=== PATIENT | female | born 1935 | race Caucasian/White ===

== ENCOUNTER → 2016-06-29 | Outpatient (CLI) | payer OTHER, MEDICARE | LOC: BRMIMAGING 10:54 | DX: Z12.31 Encounter for screening mammogram for malignant neoplasm of breast (principal) | CPT/HCPCS: G0202 ==

== ENCOUNTER → 2017-07-10 | Outpatient (CLI) | payer OTHER, MEDICARE | LOC: FIMAGING 13:05 | PROVIDERS: ATTEND Internal Medicine Pulmonary Disease | DX: J98.6 Disorders of diaphragm (principal); R94.2 Abnormal results of pulmonary function studies; J45.909 Unspecified asthma, uncomplicated ==

== ENCOUNTER → 2017-07-12 | Outpatient (CLI) | payer OTHER, MEDICARE | LOC: BRMIMAGING 13:03 | DX: Z12.31 Encounter for screening mammogram for malignant neoplasm of breast (principal) ==

== ENCOUNTER → 2017-08-15 | Outpatient (CLI) | payer OTHER, MEDICARE | LOC: BRMIMAGING 09:13 | PROVIDERS: ATTEND Family Medicine | DX: R92.8 Other abnormal and inconclusive findings on diagnostic imaging of breast (principal) | CPT/HCPCS: 76641-PO ==

== ENCOUNTER 2017-12-12 09:22 | Inpatient (IN) | payer OTHER, MEDICARE ==
[2017-12-12] MEDS ORDERED: ACETAMINOPHEN 500 MG TAB PO ONE (09:42)
[2017-12-12] MEDS ORDERED: GABAPENTIN 300 MG CAP PO ONE (09:42)
[2017-12-12] MEDS ORDERED: morphINE PF 0.2 MG in SYRINGE INTRATHECAL 1 SYR IT ONE (09:42)
[2017-12-12] MEDS ORDERED: ceFAZolin 2 GM/DEXTROSE 100 ML IV ONE (09:42)
[2017-12-12] MEDS ORDERED: LIDOCAINE 1% 2 ML INJ ID PRN (09:44)
[2017-12-12] MEDS ORDERED: LR 1,000 ML IV ONE (09:44)
--- NOTE | 2017-12-12 11:59 | PDANEPAE ---
ANE History of Present Illness Lumbar stenosis ANE Past Medical History - Cardiovascular History Hx Hypertension: Yes Hx Arrhythmias: No Hx Chest Pain: No Hx Coronary Artery / Peripheral Vascular Disease: Yes Hx CHF / Valvular Disease: Yes Hx Palpitations: Yes Cardiovascular History Comment: RUNS RAPID HEART RATE - Pulmonary History Hx COPD: No Hx Asthma/Reactive Airway Disease: Yes Hx Recent Upper Respiratory Infection: No Hx Oxygen in Use at Home: No Hx Sleep Apnea: No Sleep Apnea Screening Result - Last Documented: Negative Pulmonary History Comment: VIRUS 10/18/17 PLACED ON 2 ROUNDS OF ANTIBIOTICS AND NEBULIZER. COUGH IS SLOWLY RESOLVING 11/14/17. PULM HTN, HYPOXEMIA. EPISODES OF SOB. W/ENVIRONMENTAL ALLERGIES/IRRITANTS - Neurologic History Hx Cerebrovascular Accident: No Hx Seizures: No Hx Dementia: No Neurologic History Comment: "EYE" MIGRAINES RARE - Endocrine History Hx Diabetes: No Endocrine History Comment: PARTIAL THYROIDECTOMY - Renal History Hx Renal Disorders: No Renal History Comment: NOC FREQUENCY - Liver History Hx Hepatic Disorders: No Hepatic History Comment: CHOLECYSTECTOMY - Neurological & Psychiatric Hx Hx Neurological and Psychiatric Disorders: No - Cancer History Hx Cancer: Yes Cancer History Comment: SKIN CA REMOVED ARMS - Congenital Disorder History Hx Congenital Disorders: No - GI History Hx Gastrointestinal Disorders: Yes Gastrointestinal History Comment: INDIGESTION, BELCHING - Other Health History Other Health History: ECZEMA - Chronic Pain History Chronic Pain: Yes (LOW BACK & LEGS) - Surgical History Prior Surgeries: TONSILLECTOMY. PARTIAL THYROIDECTOMY. CHOLECYSTECTOMY ANE Review of Systems Review of Systems: - Exercise capacity METS (RN): 3 METS ANE Patient History - Allergies Allergies/Adverse Reactions: codeine Allergy (Verified 09/22/17 10:24) Vomiting - Home Medications Home medications: home medication list seen and reviewed Home Medications: Albuterol [Proventil Inhaler HFA (*)] 1 - 2 puffs IH DAILY PRN 09/22/17 [Last Taken 12/11/17] Albuterol [Proventil Neb] 3 ml IH QID PRN 09/22/17 [Last Taken 12/11/17 19:30] Aspirin [Aspirin 325 mg (*)] 325 mg PO DAILY PRN 09/22/17 [Last Taken 11/28/17] Losartan/Hydrochlorothiazide [Losartan-Hctz 100-25 mg Tab] 1 each PO DAILY 09/22 [Last Taken 12/11/17 06:30] Spironolactone [Aldactone 25 MG (*)] 12.5 mg PO DAILY 09/22/17 [Last Taken 12/11 06:30] Thyroid [[place] Thyroid 60 MG (*)] 120 mg PO DAILY 09/22/17 [Last Taken 06:30] Montelukast Sodium [Singulair 10 mg (*)] 10 mg PO DAILY 11/07/17 [Last Taken 22:00] Ranitidine HCl [Zantac 75] 75 mg PO DAILY 11/07/17 [Last Taken 11/21/17] - NPO status NPO Since - Liquids (Date): 12/12/17 NPO Since - Liquids (Time): 08:30 NPO Since - Solids (Date): 12/11/17 NPO Since - Solids (Time): 18:00 - Anes Hx Anes Hx: no prior problems - Smoking Hx Smoking Status: Never smoked - Family Anes Hx Family Hx Anesthesia Complications: NEG ANE Labs/Vital Signs - Vital Signs Blood Pressure: 179/88 Heart Rate: 112 Respiratory Rate: 16 O2 Sat (%): 93 Height: 160.02 cm Weight: 63.503 kg ANE Physical Exam - Airway Neck exam: FROM Mallampati Score: Class 2 Mouth exam: normal dental/mouth exam - Pulmonary Pulmonary: no respiratory distress - Cardiovascular Cardiovascular: regular rate and rhythym - ASA Status ASA Status: III ANE Anesthesia Plan Anesthesia Plan: general endotracheal anesthesia
--- NOTE | 2017-12-12 12:02 | PDHPUP ---
History & Physical Update H&P update statement: This history and physical update is based on an assessment of the patient which was completed after admission or registration (within 24 hours), but prior to the surgery/procedure. H&P update: H&P reviewed & patient examined, no change in patient's condition since H&P completed (Consents signed and site marked. All questions answered.)
[2017-12-12] MEDS ORDERED: CHLORHEXIDINE GLUC HIBICLENS 118 ML BTL TP ONE (12:04)
[2017-12-12] MEDS ORDERED: THROMBIN (BOVINE) 20,000 UNIT VIAL TP ONE (12:04)
[2017-12-12] MEDS ORDERED: BUPIVACAINE 0.25% 30 ML SDV ONE (12:04)
[2017-12-12] MEDS ORDERED: BACITRACIN 50,000 UNITS/10 ML SYR IRR ONE (12:04)
[2017-12-12] MEDS ORDERED: EPINEPHrine 1 MG/ML INJ ONE (12:04)
[2017-12-12] MEDS ORDERED: REMIFENTANIL HCL 1 MG VIAL ONE (12:18)
[2017-12-12] MEDS ORDERED: fentaNYL 100 MCG/2 ML INJ ONE ×2 (12:18→15:57)
[2017-12-12] MEDS ORDERED: PROPOFOL/EMULSION 500 MG/50 ML BOTTLE IV ONE (12:18)
[2017-12-12] MEDS ORDERED: PROPOFOL 200 MG/20 ML VIAL ONE (12:18)
[2017-12-12] MEDS ORDERED: LIDOCAINE 2% 2 ML INJ ONE (12:20)
[2017-12-12] MEDS ORDERED: ROCURONIUM 50 MG/5 ML VIAL ONE (12:27)
[2017-12-12] MEDS ORDERED: PHENYLEPHRINE HCL 100 MCG/ML SYR ONE (12:37)
[2017-12-12] MEDS ORDERED: VASOPRESSIN 20 UNIT/ML VIAL ONE (13:22)
[2017-12-12] MEDS ORDERED: HYDROmorphONE/DILAUDID 2 MG/ML INJ IVP PRN (15:56)
[2017-12-12] MEDS ORDERED: fentaNYL 100 MCG/2 ML INJ IVP PRN (15:56)
[2017-12-12] MEDS ORDERED: ONDANSETRON 4 MG/2 ML VIAL IVP PRN ×2 (15:56→16:51)
[2017-12-12] MEDS ORDERED: NALOXONE HCL 0.4 MG/ML INJ IVP PRN (15:56)
[2017-12-12] MEDS ORDERED: ALBUTEROL 3 ML DEYVIAL IH PRN (16:40)
[2017-12-12] MEDS ORDERED: ALBUTEROL 60 PUFFS/8 GM MDI IH PRN (16:40)
[2017-12-12] MEDS ORDERED: BISACODYL 10 MG SUPP PR PRN (16:51)
[2017-12-12] MEDS ORDERED: POLYETHYLENE GLYCOL 3350 17 GM PKT PO PRN (16:51)
[2017-12-12] MEDS ORDERED: ONDANSETRON DISINTEGRATING 4 MG TAB PO PRN (16:51)
[2017-12-12] MEDS ORDERED: MAGNESIUM HYDROXIDE 30 ML UDCUP PO PRN (16:51)
[2017-12-12] MEDS ORDERED: oxyCODONE IR 5 MG TAB PO PRN (16:51)
[2017-12-12] MEDS ORDERED: diphenhydrAMINE 25 MG CAP PO PRN (16:51)
[2017-12-12] MEDS ORDERED: LACTULOSE 20 GM/30 ML UDCUP PO PRN (16:51)
--- NOTE | 2017-12-12 16:52 | POSTANESTH ---
Post Anesthetic Evaluation Cardiovascular Status: Similar to Pre-Op Cond Respiratory Status: Similar to Pre-op Cond. Level of Consciousness/Mental Status: Alert and Oriented, Mildly Sleepy, Arousable Pain Control: Adequate, Prn Tx Ordered Nausea/Vomiting Control: Adequate, Prn Tx Ordered Complications Possibly Related to Anesthesia: None Noted
--- NOTE | 2017-12-12 17:01 | POSTOPPROG ---
Post Op Note Date of Operation: 12/12/17 Surgeon: Galo Willingham Orthodontic Technician Assistant: JOES C Conde PAC Anesthesia: GET(General Endotracheal) Pre-op Diagnosis: Lumbar stenosis, spondylothesis Post-op Diagnosis: Lumbar stenosis, spondylothesis Indication: Lumbar stenosis, spondylothesis Procedure: L4-S1 laminectomy TLIF/PSF Inf/Abcess present in the surg proc area at time of surgery?: No EBL: 50-100 Drains: Bao POSEY Addendum - Addendum .: S: Resting comfortable O: NAD A&Ox3 Following commands BLE 5/5 VORA X4 Incision c/d/i A/P 82F s/p L4-S1 laminectomy, right sided TLIF/PSF -Advance diet as tolerated -Post op xrays pending -Optimize pain management -JPx1 -DVT prophx: TEDs, SCDs, Lovenox okay POD1 -Please notify NS with any change in neuro/motor exam
[2017-12-12] MEDS ORDERED: ONDANSETRON 4 MG/2 ML VIAL ONE (17:27)
--- NOTE | 2017-12-12 17:32 | GOP ---
DATE OF OPERATION: 12/12/2017 SURGEON: Galo Willingham MD ENGINE SETTER: DELMY Brown ANESTHESIA: General. PREOPERATIVE DIAGNOSIS: 1. L4-S1 lumbar spinal spondylosis with severe spinal stenosis L4-L5. 2. Grade 1 spondylolisthesis L4-5. 3. Lower extremity radiculopathy. 4. Treatment refractory to nonoperative intervention. POSTOPERATIVE DIAGNOSIS: 1. L4-S1 lumbar spinal spondylosis with severe spinal stenosis L4-L5. 2. Grade 1 spondylolisthesis L4-5. 3. Lower extremity radiculopathy. 4. Treatment refractory to nonoperative intervention. PROCEDURE PERFORMED: 1. Posterior arthrodesis with approach to L4, L5, and S1. 2. Posterolateral fusion with bilateral pedicle screw placement into L4, L5, and S1 from the nGAP 4.75 system. 3. Decompressive laminectomy with bilateral medial facetectomies L4-L5 and L5- S1, as well as right-sided aggressive facetectomies L4-L5 and L5-S1. 4. Right-sided L4-5 transforaminal lumbar interbody fusion with an 8 x 23 mm titanium PEEK Elevate cage filled with morselized autograft and allograft. 5. Right-sided L5-S1 transforaminal lumbar interbody fusion with an 8 x 20 mm titanium PEEK Elevate cage filled with morselized autograft and allograft. 6. Posterolateral fusion on the left between L4 and S1 with morselized autograft and allograft. 7. Use of intraoperative 3D Stealth navigation. 8. Use of intraoperative fluoroscopy, less than 1 hour physician time. 9. Use of neuromonitoring. 10. Use of microscope. 11. Injection of preservative-free intrathecal narcotics. FINDINGS: per imaging SPECIMENS: None. ESTIMATED BLOOD LOSS: 150 mL. INDICATIONS: The patient is an 82-year-old woman who unfortunately suffered a long-standing history of low back pain with lower extremity radiculopathy and claudication. She had evidence of grade 1 spondylolisthesis L4-5 with severe spinal stenosis, as well as spondylosis L4-S1. After discussion of the risks, benefits, and treatment alternatives and after failing nonoperative intervention , we decided to proceed forth with surgery as described above. DESCRIPTION OF PROCEDURE: The patient was brought to the operating theater and underwent general endotracheal anesthesia without complications. She had Venodynes, JENNIE hose, and the appropriate lines placed by Anesthesia. She was flipped prone onto a Bao table. All bony processes inspected and padded. The lower lumbar region was prepped and draped in usual sterile surgical fashion. A time-out was completed per protocol. The patient received antibiotics within 1 hour of incision. Using lateral fluoroscopy and a spinal needle, we picked our entry point to the L4 through S1 levels. This was marked in the midline. The incision was infiltrated with Marcaine with epinephrine. The incision was taken down with the scalpel blade and then using monopolar, the incision was taken down midline through the lumbodorsal fascia. A subperiosteal dissection was carried to the L4 through S1 levels. We exposed the transverse process of L4 through S1 and care was taken to preserve the bilateral L3-4 facet joint. Deep retractors placed to maintain exposure and we confirmed our level using lateral fluoroscopy. We attached the 3D Stealth navigation clamp to the spinous process of L5 and completed a 3D Stealth navigation spin. Using 3D Stealth navigation, we placed the sdv pilot/navigator/dds operator holes for the bilateral pedicle screws in L4, L5, and S1. All holes were manually palpated with no evidence of any cortical breaches. We then tapped and placed 6.5 x 50 mm screws bilaterally in L4 and L5, left side at S1 and 6.5 x 45 mm screw on the right S1, all from [employer] Solera 4.75 system. Another 3D Stealth navigation spin demonstrated good placement of the hardware. At this point, the microscope was brought into field to assist with microscopic dissection and to maintain illumination and magnification. Using a combination of the bur tip on the drill bit, Kerrison punches, and Leksell rongeur, we completed decompressive laminectomy with bilateral medial facetectomies at L4- L5 and L5-S1 with aggressive facetectomies on the right side L4-5 and L5-S1 to ensure the nerve roots were well decompressed. We then moved up to L4-5 where we distracted the interspace and complete right-sided L4-5 diskectomy. We prepared the cartilaginous endplates and measured the interbody space. We placed an 8 x 23 mm titanium PEEK Elevate cage fill with morselized autograft and allograft anteriorly andn toward the midline. We packed additional morcellized autograft in the disk space for interbody fusion. We let down the distraction and moved down to L5-S1 where we completed a right side L5-S1 diskectomy. We prepared the cartilaginous endplates and measured interbody space. We placed an 8 x 20 mm titanium PEEK Elevate cage filled with morselized autograft and allograft anteriorly and toward the midline. We packed additional morcellized autograft in the disk space for the interbody fusion. We let down the distraction and decorticated the bone on the left side between L4 and S1. The wound was irrigated copiously with bacitracin irrigation. We injected preservative-free intrathecal narcotics. We placed morselized autograft and allograft on the left side between L4-S1 posterior fusion. A drain was left in subfascial space. The wound then closed in multiple layers using Vicryl sutures for the deep layers and Dermabond for the skin. The patient's wounds were dressed sterilely. She was flipped supine onto the transfer cart. She was awakened, extubated, and taken to recovery room in stable condition. There were no complications and no noted changes on neuromonitoring throughout the procedure. The use of a PA was critical to this procedure in protecting and retracting the tissues. COMPLICATIONS: None. /[id number]/MODL MTDD
[2017-12-12] MEDS: ceFAZolin 2 GM/DEXTROSE 100 ML IV SCH (21:13)
[2017-12-12] MEDS: ACETAMINOPHEN 500 MG TAB PO SCH (21:13)
[2017-12-12] MEDS: SENNOSIDES/DOCUSATE SODIUM TAB PO SCH (21:13)
[2017-12-12] MEDS: NS 1,000 ML IV SCH (21:13)
[2017-12-12] MEDS: FAMOTIDINE 20 MG TAB PO SCH (21:13)
[2017-12-13] MEDS: ACETAMINOPHEN 500 MG TAB PO SCH ×3 (05:45→21:38)
[2017-12-13] MEDS: ceFAZolin 2 GM/DEXTROSE 100 ML IV SCH (05:45)
[2017-12-13] MEDS: SENNOSIDES/DOCUSATE SODIUM TAB PO SCH ×2 (08:11→19:40)
[2017-12-13] MEDS: THYROID 60 MG TAB PO SCH (08:12)
[2017-12-13] MEDS: FAMOTIDINE 20 MG TAB PO SCH ×2 (08:12→19:40)
[2017-12-13] MEDS: MONTELUKAST SODIUM 10 MG TAB PO SCH (08:12)
[2017-12-13] MEDS: ENOXAPARIN 40 MG/0.4 ML SYR SC SCH (08:13)
[2017-12-13] MEDS: SPIRONOLACTONE 25 MG TAB PO SCH (08:31)
[2017-12-13] MEDS: METHOCARBAMOL 750 MG TAB PO PRN ×2 (08:37→19:40)
[2017-12-13] MEDS: traMADol 50 MG TAB PO PRN ×2 (08:37→19:40)
[2017-12-13] MEDS: NS 1,000 ML IV SCH (08:39)
[2017-12-13] MEDS ORDERED: NON-FORMULARY NEW DRUG (Ranitidine Hcl [Zantac 75] 75 MG) PO SCH (09:00)
--- NOTE | 2017-12-13 09:35 | SOAPPROG ---
SOAP Progress Note Assessment/Plan: Assessment: 82 yo F POD #1 L4-S1 TLIF Plan: neuro: stable and doing well overall PT/OT post op x-rays pending scd/ezequiel/lovenox for dvt prophylaxis may need inpatient rehab please call with neuro changes 12/13/17 09:33 Subjective: back pain controlled, no leg pain, no weakness. Objective: Vital Signs Temp Pulse Resp BP Pulse Ox 36.8 C 85 14 110/55 L 91 L 12/13/17 07:38 12/13/17 07:38 12/13/17 07:38 12/13/17 07:38 12/13/17 07:38 12/12/17 12/13/17 12/14/17 05:59 05:59 05:59 Intake Total 3164 400 Output Total 1475 580 Balance 1689 -180 AAOx4, +FC PERRL, EOMI, no facial droop 5/5 + light touch C/D/I ICD10 Worksheet Patient Problems: Problems Problem Status Onset Fusion of spine of lumbar region Acute - ICD10 Problem Qualifiers (1) Fusion of spine of lumbar region
--- NOTE | 2017-12-13 10:30 | PDMN ---
Medical Necessity Medical necessity: [facility] IP only surgery; cpt 75217 Lumbar Fusion
[2017-12-13] MEDS ORDERED: PROMETHAZINE HCL 25 MG/ML INJ IVP PRN (12:05)
--- NOTE | 2017-12-13 15:39 | ASMTCMCOM ---
MINAL Note CM Note Notes: Pt admitted for scheduled spinal surgery. 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 OT recommends H/HC, PT pending. MINAL w/f. DC Plan: TBD Date Signed: 12/13/2017 03:38 PM Electronically Signed By:Julianne Liu RN
[2017-12-14] MEDS: METHOCARBAMOL 750 MG TAB PO PRN ×2 (03:57→16:28)
[2017-12-14] MEDS: traMADol 50 MG TAB PO PRN ×3 (03:57→23:31)
[2017-12-14] MEDS: ACETAMINOPHEN 500 MG TAB PO SCH ×3 (05:44→23:30)
--- NOTE | 2017-12-14 09:06 | NEUSURGPN ---
Assessment/Plan: Assessment: 82 yo F POD #2 L4-S1 TLIF Plan: neuro: stable and doing well overall PT/OT post op x-rays demonstrate intact hardware scd/ezequiel/lovenox for dvt prophylaxis Dispo likely tomorrow SNF vs HHC Continue DOUG drain, may d/c later today Optimize pain management please call with neuro changes Subjective: Some mild but tolerable back pain, no leg pain, no weakness. Objective: NAD, AOx3 MAEx4 5/5 and equal Incision c/d/i + light touch C/D/I Catheter Insertion Date: 12/12/17 Neurosurgery Physical Exam - Vitals, I&O, Labs I and O 12/13/17 12/14/17 12/15/17 05:59 05:59 05:59 Intake Total 3164 1780 Output Total 1475 1710 300 Balance 1689 70 -300 Weight 63.503 kg Intake: Oral (ml) 450 1780 IV Intake (ml) 1900 IV Infused (ml) 814 Ns 1,000 ml @ 75 mls/hr 220 IV CONT ALONA Rx#: [id number] ceFAZolin 2 GM/DEXTROSE 594 100 ml @ 200 mls/hr IV Q8H ALONA Rx#:[id number] Output: Urine (ml) 1100 700 300 Catheter 1100 Toilet 700 300 Estimated Blood Loss (ml) 50 Emesis (ml) 200 800 DOUG Drain Output (ml) 125 210 Back Bao Scott 125 210 Other: Intake Quantity Yes Sufficient Number of Voids Catheter 1 Toilet 1 1 Number of Stools Toilet 0 Number of Emesis 1 Occurrences Vital Signs Temp Pulse Resp BP Pulse Ox 36.6 C 100 16 131/66 H 87 L 12/14/17 07:24 12/14/17 07:24 12/14/17 07:24 12/14/17 07:24 12/14/17 07:24 ICD10 Worksheet Patient Problems: Problems Problem Status Onset Fusion of spine of lumbar region Acute
[2017-12-14] MEDS: THYROID 60 MG TAB PO SCH (09:55)
[2017-12-14] MEDS: SPIRONOLACTONE 25 MG TAB PO SCH (09:55)
[2017-12-14] MEDS: FAMOTIDINE 20 MG TAB PO SCH ×2 (09:55→20:26)
[2017-12-14] MEDS: ENOXAPARIN 40 MG/0.4 ML SYR SC SCH (09:58)
[2017-12-14] MEDS: SENNOSIDES/DOCUSATE SODIUM TAB PO SCH ×2 (09:59→20:25)
[2017-12-14] MEDS: MONTELUKAST SODIUM 10 MG TAB PO SCH (09:59)
--- NOTE | 2017-12-14 13:55 | ASMTCMCOM ---
CM Note CM Note Notes: PT rec HHC, pt amenable. [facility] FONTAINE to follow. Date Signed: 12/14/2017 01:54 PM Electronically Signed By:MICHELLE Hand
[2017-12-14] MEDS ORDERED: MONTELUKAST SODIUM 10 MG TAB PO SCH (21:00)
[2017-12-15] MEDS: ACETAMINOPHEN 500 MG TAB PO SCH ×2 (05:45→13:04)
[2017-12-15] MEDS: traMADol 50 MG TAB PO PRN ×2 (05:45→13:06)
[2017-12-15 07:04] VITALS: BP 151/73
[2017-12-15] MEDS: ENOXAPARIN 40 MG/0.4 ML SYR SC SCH (09:16)
[2017-12-15] MEDS: METHOCARBAMOL 750 MG TAB PO PRN (09:17)
[2017-12-15] MEDS: FAMOTIDINE 20 MG TAB PO SCH (09:17)
[2017-12-15] MEDS: THYROID 60 MG TAB PO SCH (09:17)
[2017-12-15] MEDS: SPIRONOLACTONE 25 MG TAB PO SCH (09:17)
[2017-12-15] MEDS: SENNOSIDES/DOCUSATE SODIUM TAB PO SCH (09:18)
--- NOTE | 2017-12-15 09:22 | NEUSURGPN ---
Assessment/Plan: Assessment: 82 yo F POD #3 L4-S1 TLIF Plan: neuro: stable and doing well overall PT/OT post op x-rays demonstrate intact hardware scd/ezequiel/lovenox for dvt prophylaxis Dispo with [facility] Optimize pain management please call with neuro changes Subjective: Tolerable back pain, no leg pain, no weakness. Objective: NAD, AOx3 MAEx4 5/5 and equal Incision c/d/i + light touch C/D/I Catheter Insertion Date: 12/12/17 - Physician Discussed Patient with : Tarsha Neurosurgery Physical Exam - Vitals, I&O, Labs I and O 12/14/17 12/15/17 12/16/17 05:59 05:59 05:59 Intake Total 1780 900 Output Total 1710 935 Balance 70 -35 Intake: Oral (ml) 1780 900 Output: Urine (ml) 700 900 Toilet 700 900 Emesis (ml) 800 DOUG Drain Output (ml) 210 35 Back Bao Scott 210 35 Other: Intake Quantity Yes Yes Sufficient Number of Voids Toilet 1 3 1 Number of Stools Toilet 0 1 Number of Emesis 1 Occurrences Vital Signs Temp Pulse Resp BP Pulse Ox 36.9 C 91 12 151/73 H 88 L 12/15/17 07:01 12/15/17 07:01 12/15/17 07:01 12/15/17 07:01 12/15/17 07:01 ICD10 Worksheet Patient Problems: Problems Problem Status Onset Fusion of spine of lumbar region Acute
--- NOTE | 2017-12-15 09:25 | PDIAF ---
- Diagnosis Code Status: Full Code - Medication Management Discharge Medications: Medications to Continue on Transfer Albuterol [Proventil Inhaler HFA (*)] 1 - 2 puffs IH DAILY PRN 09/22/17 [Last Taken 12/11/17] Albuterol [Proventil Neb] 3 ml IH QID PRN 09/22/17 [Last Taken 12/11/17 19:30] Losartan/Hydrochlorothiazide [Losartan-Hctz 100-25 mg Tab] 1 each PO DAILY 09/22 [Last Taken 12/11/17 06:30] Spironolactone [Aldactone 25 MG (*)] 12.5 mg PO DAILY 09/22/17 [Last Taken 12/11 06:30] Thyroid [[place] Thyroid 60 MG (*)] 120 mg PO DAILY 09/22/17 [Last Taken 06:30] Montelukast Sodium [Singulair 10 mg (*)] 10 mg PO HS 11/07/17 [Last Taken 22:00] Ranitidine HCl [Zantac 75] 75 mg PO DAILY 11/07/17 [Last Taken 11/21/17] Methocarbamol [Robaxin 750 mg (*)] 750 mg PO QID PRN #60 tab 12/15/17 [Last Taken Unknown] oxyCODONE IR [Oxycodone Ir (*)] 5 - 10 mg PO Q4HRS PRN #90 tab 12/15/17 [Last Taken Unknown] traMADol [Ultram 50 mg (*)] 50 mg PO Q6HRS PRN tab 12/15/17 [Last Taken Unknown ] Discharge Medications: Refer to the Discharge Home Medication list for PRN reason. - Orders Services needed: Physical Therapy, Occupational Therapy Diet Recommendation: no restrictions on diet - Follow Up Care Current Providers and Referrals: RONALDO RIVERO [Primary Care Provider] -
--- NOTE | 2017-12-15 11:26 | ASMTLACE ---
LACE Length of stay for Answers: 3 days current admission Acuity / Level of Answers: Yes Care: Did the patient have an inpatient admission? Comorbidities - select Answers: Congestive heart failure all that apply Coronary Artery Disease Opioid dependence / Chronic pain Other Notes: HTN # of Emergency department Answers: 0 visits in the last 6 months Score: 15 Date Signed: 12/15/2017 11:26 AM Electronically Signed By:MICHELLE Hand
--- NOTE | 2017-12-15 11:29 | ASMTCMCOM ---
CM Note CM Note Notes: Pt medically stable for d/c with [facility] PT. Orders sent in [employer]. Pt dghtr Tosha updated. Date Signed: 12/15/2017 11:28 AM Electronically Signed By:MICHELLE Hand
--- NOTE | 2017-12-15 14:59 | ASDISCHSUM ---
Discharge Information Plan Status:Home with Home Health Medically Cleared to Leave: Discharge Date:12/15/2017 02:53 PM CM D/C Disposition: ADT D/C Disposition:[id number] Projected Discharge Date:12/15/2017 11:00 AM Transportation at D/C: Discharge Delay Reason: Follow-Up Date:12/15/2017 11:00 AM Discharge Slot: Final Diagnosis: Placement Information Referral Type:*Home Health Care Services Referral ID:[id number] Provider Name:[facility] NATASHA) Address 1:[address] [facility] Address 2:[facility] [[email or web address] [address] City:[place] Selection Factors: State:[place] Patient Contact Information Contact Name:TOSHANEEL Relationship:Daughter Address: City:[facility] Phone: State/Zip Code:[place] Email: Financial Information Financial Class:Medicare Primary Plan Desc:MEDICARE INPATIENT Primary Plan Number:[id number] Secondary Plan Desc:SUSYP/PAGE SUPPLEMENT Secondary Plan Number:[id number] Assessment Information LACE LACE Length of stay for Answers: 3 days current admission Acuity / Level of Answers: Yes Care: Did the patient have an inpatient admission? Comorbidities - select Answers: Congestive heart failure all that apply Coronary Artery Disease Opioid dependence / Chronic pain Other Notes: HTN # of Emergency department Answers: 0 visits in the last 6 months Score: 15 Date Signed: 12/15/2017 11:26 AM Electronically Signed By:MICHELLE Hand [facility] CM Progress Note CM Note CM Note Notes: Pt admitted for scheduled spinal surgery. 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 OT recommends H/HC, PT pending. CM w/f. DC Plan: TBD Date Signed: 12/13/2017 03:38 PM Electronically Signed By:Julianne Liu RN [facility] CM Progress Note CM Note CM Note Notes: PT rec HHC, pt amenable. Pt to d/c home with [facility] who have protocol with MD. FONTAINE to follow. Date Signed: 12/14/2017 01:54 PM Electronically Signed By:MICHELLE Hand [facility] CM Progress Note CM Note CM Note Notes: Pt medically stable for d/c with [facility] PT. Orders sent in [employer]. Pt dghtr Tosha coyle. Date Signed: 12/15/2017 11:28 AM Electronically Signed By:MICHELLE Hand Intervention Information Intervention Type:*IM-Signed Date of Service:12/15/2017 10:26 AM Patient Type:Inpatient Staff Member:Breanna Keith Hours: Discipline: Severity: Comment:
== END 2017-12-15 14:53 | disposition home health service (06) | DRG 455 ==
LOC: F3N 09:22
PROVIDERS: ADMIT Neurological Surgery; ATTEND Neurological Surgery
PROC: 8E0WXBZ Computer Assisted Procedure of Trunk Region (ICD-10-PCS; principal; 2017-12-12 11:15)
PROC: 01NB0ZZ Release Lumbar Nerve, Open Approach (ICD-10-PCS; principal; 2017-12-12 11:15)
PROC: 0SG3071 Fusion of Lumbosacral Joint with Autologous Tissue Substitute, Posterior Approach, Posterior Column, Open Approach (ICD-10-PCS; principal; 2017-12-12 11:15)
PROC: 00NY0ZZ Release Lumbar Spinal Cord, Open Approach (ICD-10-PCS; principal; 2017-12-12 11:15)
PROC: 0SG0071 Fusion of Lumbar Vertebral Joint with Autologous Tissue Substitute, Posterior Approach, Posterior Column, Open Approach (ICD-10-PCS; principal; 2017-12-12 11:15)
PROC: 4A1004G Monitoring of Central Nervous Electrical Activity, Intraoperative, Open Approach (ICD-10-PCS; principal; 2017-12-12 11:15)
PROC: 0SG30AJ Fusion of Lumbosacral Joint with Interbody Fusion Device, Posterior Approach, Anterior Column, Open Approach (ICD-10-PCS; principal; 2017-12-12 11:15)
PROC: 0SG00AJ Fusion of Lumbar Vertebral Joint with Interbody Fusion Device, Posterior Approach, Anterior Column, Open Approach (ICD-10-PCS; principal; 2017-12-12 11:15)
DX: M48.062 Spinal stenosis, lumbar region with neurogenic claudication (principal); M47.27 Other spondylosis with radiculopathy, lumbosacral region; M43.16 Spondylolisthesis, lumbar region; I10 Essential (primary) hypertension; J45.909 Unspecified asthma, uncomplicated; Z85.820 Personal history of malignant melanoma of skin
CPT/HCPCS: 97116-GP; 97161-GP; 97166-GO; 97535-GO; C1713; G8978-GP-CK; G8979-GP-CI; G8987-GO-CJ; G8988-GO-CI; G8989-GO-CI; J0171; J0690; J1650; J2274; J2370; J2405; J2550; J2704; J3010

== ENCOUNTER → 2018-07-18 | Outpatient (CLI) | payer OTHER, MEDICARE | LOC: BRMIMAGING 10:40 | PROVIDERS: ATTEND Family Medicine | DX: Z12.31 Encounter for screening mammogram for malignant neoplasm of breast (principal) ==